=== PATIENT | male | born 1965 | race Caucasian/White ===

== ENCOUNTER → 2017-02-18 | Outpatient (CLI) | payer BC ==
--- NOTE | 2017-02-18 11:41 | RADIOLOGY REPORT (SQ) ---
EXAM DESCRIPTION: KNEE RIGHT 4 VIEWS COMPLETED DATE/TIME: 02/18/2017 10:11 am REASON FOR STUDY: UNSPECIFIED INJURY OF RIGHT LOWER LEG, INITIAL ENCOUNTER S89.91XA UNSPECIFIED INJ URY OF RIGHT LOWER LEG, INITIAL ENCO COMPARISON: None. NUMBER OF VIEWS: Four views. TECHNIQUE: AP, lateral, and both oblique radiographic images acquired of the right knee. LIMITATIONS: None. FINDINGS: MINERALIZATION: Normal. BONES: No acute fracture or dislocation. No worrisome bone lesions. JOINT: Large suprapatellar knee joint effusion SOFT TISSUES: No soft tissue swelling. No radio-opaque foreign body. OTHER: No other significant finding. IMPRESSION: Large suprapatellar knee joint effusion. This could indicate internal derangement No acute fracture or malalignment TECHNICAL DOCUMENTATION: JOB ID: [id number] [employer]- All Rights Reserved
== END ==
LOC: OD 09:16
PROVIDERS: ATTEND Family Medicine
DX: S89.91XA Unspecified injury of right lower leg, initial encounter (principal); X58.XXXA Exposure to other specified factors, initial encounter

== ENCOUNTER 2017-09-26 08:05 | Day surgery (SDC) | payer BC ==
[2017-09-26 08:52] LABS: POTASSIUM 3.5 mmol/L (3.6-5.0)
[2017-09-26] MEDS ORDERED: FENTANYL CITRATE INJ/PF 100 MCG/2 ML AMPUL IV PRN ×3 (09:22)
[2017-09-26] MEDS ORDERED: PROMETHAZINE HCL INJ 25 MG/1 ML VIAL IV PRN ×2 (09:22)
[2017-09-26] MEDS ORDERED: DIPHENHYDRAMINE HCL 50 MG/ML VIAL IV PRN (09:22)
[2017-09-26] MEDS ORDERED: OXYCODONE-ACETAMINOPHEN 5-325 MG TABLET PO PRN ×2 (09:22)
[2017-09-26] MEDS ORDERED: MEPERIDINE HCL/PF INJ 25 MG/1 ML DISP.SYRIN IV PRN (09:22)
--- NOTE | 2017-09-26 10:55 | Operative Report ---
Operative Report DATE OF SURGERY: 09/26/17 Operative Report: The risks, benefits and alternatives of the procedure are explained to the patient in detail he is taken to the OR and placed in a left lateral decubital positive time out is called Propofol sedation is administered An Olympus videoscope is introduced into the patient's rectum it is advanced to the cecum, it is confirmed by the IC valve and appendiceal orifice prep is good tubular and luminal views are obtained in all segments of the colon retroflexion is performed EGD is performed right after PREOPERATIVE DIAGNOSIS: personal history of polyps. epigastric pain POSTOPERATIVE DIAGNOSIS: normal colonoscopy. internal hemorrhoids. gastritis , biopsies obtained to rule out H.Pylori. no ulcers noted OPERATION: colonoscopy diagnostic. EGD with biopsy SURGEON: BALJIT BOURGEOIS ANESTHESIA: LMAC TISSUE REMOVED OR ALTERED: as noted above COMPLICATIONS: none ESTIMATED BLOOD LOSS: none INTRAOPERATIVE FINDINGS: as noted above PROCEDURE: Patient tolerated the procedure patient is discharged in good condition discharge date: 09/26/17 discharged diet: regular discharge activity is normal follow up in 2-3 weeks wait on biopsy for his colonoscopy , next 10 year surveillance continue PPI for now
[2017-09-26 11:38] VITALS: BP 100/74
== END 2017-09-26 11:10 | disposition home or self-care (01) ==
LOC: OROUT 08:05
PROVIDERS: ATTEND Internal Medicine Gastroenterology
DX: K29.50 Unspecified chronic gastritis without bleeding (principal); Z12.11 Encounter for screening for malignant neoplasm of colon; K21.9 Gastro-esophageal reflux disease without esophagitis; Z86.010 Personal history of colon polyps; K64.8 Other hemorrhoids; I10 Essential (primary) hypertension; F17.210 Nicotine dependence, cigarettes, uncomplicated; R73.03 Prediabetes; E78.5 Hyperlipidemia, unspecified; Z79.84 Long term (current) use of oral hypoglycemic drugs
CPT/HCPCS: 36415; 43239; 45378; 813; 82947; 84132; 88305

== ENCOUNTER → 2018-09-07 | Outpatient (CLI) | payer BC ==
--- NOTE | 2018-09-07 16:11 | RADIOLOGY REPORT (SQ) ---
EXAM DESCRIPTION: KNEE RIGHT 4 VIEWS COMPLETED DATE/TIME: 09/07/2018 3:51 pm REASON FOR STUDY: LOWER EXTREMITY PAIN,RIGHT M79.604 PAIN IN RIGHT LEG COMPARISON: None. NUMBER OF VIEWS: Four views. TECHNIQUE: AP, lateral, and both oblique radiographic images acquired of the right knee. LIMITATIONS: None. FINDINGS: MINERALIZATION: Normal. BONES: No acute fracture or dislocation. No worrisome bone lesions. JOINT: No effusion. SOFT TISSUES: No soft tissue swelling. No radio-opaque foreign body. OTHER: No other significant finding. IMPRESSION: NEGATIVE STUDY OF THE RIGHT KNEE. NO RADIOGRAPHIC EVIDENCE OF ACUTE INJURY. TECHNICAL DOCUMENTATION: JOB ID: [id number] [employer]- All Rights Reserved Reading location - IP/workstation name: [email or web address]
--- NOTE | 2018-09-07 16:12 | RADIOLOGY REPORT (SQ) ---
EXAM DESCRIPTION: FOOT RIGHT COMPLETE COMPLETED DATE/TIME: 09/07/2018 3:52 pm REASON FOR STUDY: LOWER EXTREMITY PAIN,RIGHT M79.604 PAIN IN RIGHT LEG COMPARISON: None. NUMBER OF VIEWS: Three views. TECHNIQUE: AP, lateral and oblique radiographic images acquired of the right foot. LIMITATIONS: None. FINDINGS: MINERALIZATION: Normal. BONES: No acute fracture or dislocation. No worrisome bone lesions. JOINTS: No effusions. SOFT TISSUES: No soft tissue swelling. No foreign body. OTHER: No other significant finding. IMPRESSION: NEGATIVE STUDY OF THE RIGHT FOOT. NO RADIOGRAPHIC EVIDENCE OF ACUTE INJURY. TECHNICAL DOCUMENTATION: JOB ID: [id number] [employer]- All Rights Reserved Reading location - IP/workstation name: [email or web address]
--- NOTE | 2018-09-07 16:12 | RADIOLOGY REPORT (SQ) ---
EXAM DESCRIPTION: ANKLE RIGHT COMPLETE COMPLETED DATE/TIME: 09/07/2018 3:52 pm REASON FOR STUDY: LOWER EXTREMITY PAIN,RIGHT M79.604 PAIN IN RIGHT LEG COMPARISON: None. NUMBER OF VIEWS: Three views. TECHNIQUE: AP, lateral, and oblique radiographic images acquired of the right ankle. LIMITATIONS: None. FINDINGS: MINERALIZATION: Normal. BONES: No acute fracture or dislocation. No worrisome bone lesions. JOINTS: No effusions. SOFT TISSUES: Lateral swelling. No foreign body. OTHER: No other significant finding. IMPRESSION: Lateral swelling. TECHNICAL DOCUMENTATION: JOB ID: [id number] [employer]- All Rights Reserved Reading location - IP/workstation name: [email or web address]
== END ==
LOC: OD 15:26
PROVIDERS: ATTEND Family Medicine
DX: M79.604 Pain in right leg (principal)